=== PATIENT | male | born 1985 | race Caucasian/White ===

== ENCOUNTER 2019-05-13 16:55 | Emergency (ER) | payer OTHER ==
[2019-05-13] MEDS ORDERED: diphenhydrAMINE 25 MG CAP ONE (17:34)
[2019-05-13] MEDS ORDERED: Ondansetron ODT 4 MG TAB ONE (17:34)
--- NOTE | 2019-05-13 18:11 | RAD ---
CHEST TWO VIEWS: 05/13/19 HISTORY: Cough. Heart size and mediastinum are within normal limits. The lungs are clear of infiltrates. No bony find ings. IMPRESSION: No active intrathoracic disease. POS: [facility]
[2019-05-13] MEDS ORDERED: Acetaminophen 500 MG TAB ONE (18:37)
--- NOTE | 2019-05-17 13:54 | EKG ---
Test Reason : Blood Pressure : / mmHG Vent. Rate : 088 BPM Atrial Rate : 088 BPM P-R Int : 142 ms QRS Dur : 094 ms QT Int : 362 ms P-R-T Axes : 063 084 059 degrees QTc Int : 438 ms Normal sinus rhythm with sinus arrhythmia Normal ECG Confirmed by NILE WELLER MD ([id number]), production editor [place] ([id number]) on 05/17/2019 1:54:16 PM Referred By: Confirmed By:NILE WELLER MD
== END 2019-05-13 19:40 | disposition home or self-care (01) ==
LOC: ERS 16:55
DX: J11.1 Influenza due to unidentified influenza virus with other respiratory manifestations (principal)
CPT/HCPCS: 36416; 71046; 87804; 93005; Q0162; Q0163